=== PATIENT | female | born 1995 | race Caucasian/White ===

== ENCOUNTER → 2016-08-09 | Outpatient (CLI) | payer BC ==
[~2016-08-09] MED LIST: CYCLAFEM 1/35 31 TAB PO; NORCO 325 MG-51 TAB PO; PEPCID 20MG TAB20 MG PO
== END ==
LOC: RAD 13:14

== ENCOUNTER → 2016-11-13 | Outpatient (CLI) | payer BC ==
[2015-02-07 06:56] VITALS: BP 115/75
== END ==
LOC: LAB 16:32
DX: N92.0 Excessive and frequent menstruation with regular cycle (principal); N93.0 Postcoital and contact bleeding

== ENCOUNTER → 2016-12-13 | Outpatient (CLI) | payer BC ==
[2015-02-07 06:56] VITALS: BP 115/75
== END ==
LOC: LAB 08:29
DX: J02.8 Acute pharyngitis due to other specified organisms (principal)

== ENCOUNTER → 2021-02-16 | Outpatient (REF) | LOC: LAB 11:23 | DX: Z00.00 Encounter for general adult medical examination without abnormal findings (principal); E78.5 Hyperlipidemia, unspecified ==